=== PATIENT | male | born 1975 | race Caucasian/White ===

== ENCOUNTER 2018-01-20 13:33 | Emergency (ER) | payer MEDICAID ==
[~2018-01-20] VITALS: Ht 185.4 cm; Wt 86.4 kg
[2018-01-20 13:39] VITALS: BP 126/85
[2018-01-20 14:36] LABS: BASOPHILS % (AUTO) 0.7 % (0.0-2.0); EOSINOPHILS % (AUTO) 4.2 % (1.0-6.0); HEMATOCRIT 44.5 % (41-53); HEMOGLOBIN 15.1 g/dL (13.5-17.5); LYMPHOCYTES % (AUTO) 28.8 % (22.0-44.0); MEAN CORPUSCULAR HEMOGLOBIN 29.1 pg (26.0-34.0); MEAN CORPUSCULAR HGB CONC 33.9 G/dL (31.0-37.0); MEAN CORPUSCULAR VOLUME 86 fL (80-100); MONOCYTES # (AUTO) 0.8 K/uL (0.1-1.0); MONOCYTES % (AUTO) 11.7 % (2.0-9.0); NEUTROPHILS # (AUTO) 3.9 K/uL (1.8-7.7); NEUTROPHILS % (AUTO) 54.6 % (40.0-70.0); PLATELET COUNT (AUTO) 191 K/uL (150-450); RED BLOOD CELL COUNT(AUTO) 5.18 MIL/uL (4.50-5.90)
[2018-01-20 14:53] LABS: ANION GAP 10 mmol/L (8-16); CARBON DIOXIDE 28 mmol/L (22-29); CHLORIDE 103 mmol/L (98-107); CREATININE 1.02 mg/dL (0.60-1.30); GLOMERULAR FILTR. RATE CALC > 60 mL/min (>60); GLUCOSE,RANDOM 92 mg/dL (70-110); POTASSIUM 3.9 mmol/L (3.5-5.1); SODIUM SERUM 141 mmol/L (136-145); UREA NITROGEN, BLOOD 22 mg/dL (7-18)
[2018-01-20 14:57] LABS: ALANINE AMINOTRANSFERASE 66 U/L (12-78); ALBUMIN 4.4 g/dL (3.4-5.0); ALKALINE PHOSPHATASE 104 U/L (46-116); ASPARTATE AMINOTRANSFERASE 65 U/L (15-37); BILIRUBIN,TOTAL 0.9 mg/dL (0.1-1.0); LIPASE 74 U/L (73-393)
== END 2018-01-20 16:07 | disposition home or self-care (01) ==
LOC: EMS 13:35
DX: F11.10 Opioid abuse, uncomplicated (principal); F15.10 Other stimulant abuse, uncomplicated; F17.210 Nicotine dependence, cigarettes, uncomplicated; F12.90 Cannabis use, unspecified, uncomplicated
CPT/HCPCS: 36415; 80053; 83690; 84484; 85025; 93005; 99285; 99406; G0480

== ENCOUNTER 2018-07-19 16:03 | Emergency (ER) | payer MEDICAID ==
[~2018-07-19] VITALS: Ht 185.4 cm; Wt 81.8 kg
[2018-07-19 16:04] VITALS: BP 138/89
== END 2018-07-19 16:15 | disposition left against medical advice (07) ==
LOC: EMS 16:04
DX: F10.129 Alcohol abuse with intoxication, unspecified (principal); Z53.21 Procedure and treatment not carried out due to patient leaving prior to being seen by health care provider